=== PATIENT | male | born 1960 | race Caucasian/White ===

== ENCOUNTER 2018-05-21 10:30 | Emergency (ER) | payer BC ==
[2018-05-21 10:35] VITALS: BMI 25.4
[2018-05-21 11:47] LABS: BASO % 0.3 % (0-2.0); EOS % 0.7 % (0-4.5); HEMATOCRIT 42.3 % (35.4-49); LYMPH % 6.4 % (8-40); MCH 29.3 pg (25.7-33.7); MCHC 33.1 g/dl (32.0-35.9); MEAN CELL VOLUME 88.5 fl (80-96); MEAN PLT VOLUME 8.1 fl (7.5-11.1); MONO % 4.5 % (3.8-10.2); NEUT % 88.1 % (42.8-82.8); PLATELET COUNT 216 K/MM3 (134-434); RBC 4.78 M/mm3 (4.00-5.60); RDW 12.7 % (11.9-15.9); WHITE BLOOD COUNT 16.3 K/mm3 (4.0-10.0)
--- NOTE | 2018-05-21 11:52 | PDOC ---
History of Present Illness - History of Present Illness Initial Comments: <Raquel Gold - Last Filed: 05/21/18 13:23> - History of Present Illness Initial Comments: 05/21/18 11:52 The patient is a 57 year old male with no significant PMH who presents to the emergency department with cough, nasal congestion, diffuse body aches, mild shortness of breath and chest pain since last night when he was sleeping. Patient reports his symptoms last night prevented him from falling asleep prompting him to come to the ER for further evaluation. Patient states the chest pain is intermittent, localized in the mid-sterum, nonradiating, that is exacerbated with nonproductive coughing and associated with mild shortness of breath. Patient reports taking some medication from the [place] with minimal relief of his symptoms. Patient denies any recent travel, long hours of immobility, or sick contacts. Patient's father had an [place] in his 70s. The patient denies headache and dizziness. Denies fever, chills, nausea, vomit, diarrhea and constipation. Denies dysuria, frequency, urgency and hematuria. Allergies: NKA Past surgical history: None reported. Social history: Cigarette use. No reported drug or alcohol use. PCP: Dr. Marcial <Darron Fan - Last Filed: 05/21/18 14:33> - General Chief Complaint: Chest Pain Stated Complaint: CHEST PAIN Time Seen by Provider: 05/21/18 10:43 Past History <Raquel Gold - Last Filed: 05/21/18 13:23> - Past Medical History Anemia: No Asthma: No Cancer: No Cardiac Disorders: No CVA: No COPD: No CHF: No Dementia: No Diabetes: No GI Disorders: No Disorders: No HTN: No Hypercholesterolemia: No Liver Disease: No Seizures: No Thyroid Disease: No - Surgical History Abdominal Surgery: No Appendectomy: No Cardiac Surgery: No Cholecystectomy: No Lung Surgery: No Neurologic Surgery: No Orthopedic Surgery: No - Suicide/Smoking/Psychosocial Hx Smoking History: Current some day smoker Information on smoking cessation initiated: No Hx Alcohol Use: No Drug/Substance Use Hx: No Substance Use Type: None Hx Substance Use Treatment: No <Darron Fan - Last Filed: 05/21/18 14:33> - Past Medical History Allergies/Adverse Reactions: Allergies Allergy/AdvReac Type Severity Reaction Status Date / Time No Known Allergies Allergy Verified 05/21/18 10:32 Home Medications: Ambulatory Orders NK [No Known Home Medication] 07/17/14 Review of Systems - Review of Systems Comments:: 05/21/18 11:54 "GENERAL/CONSTITUTIONAL: No fever or chills. (+) Body aches. HEAD, EYES, EARS, NOSE AND THROAT: No change in vision. No ear pain or discharge. No sore throat. (+) Nasal congestion. GASTROINTESTINAL: No nausea, vomiting, diarrhea or constipation. GENITOURINARY: No dysuria, frequency, or change in urination. CARDIOVASCULAR: (+) mild shortness of breath. (+) chest pain. RESPIRATORY: No wheezing, or hemoptysis. (+) Cough. MUSCULOSKELETAL: No joint or muscle swelling or pain. No neck or back pain. SKIN: No rash NEUROLOGIC: No headache, vertigo, loss of consciousness, or change in strength/ sensation. ENDOCRINE: No increased thirst. No abnormal weight change. HEMATOLOGIC/LYMPHATIC: No anemia, easy bleeding, or history of blood clots. ALLERGIC/IMMUNOLOGIC: No hives or skin allergy." <Darron Fan - Last Filed: 05/21/18 14:33> *Physical Exam - Vital Signs Last Vital Signs Temp Pulse Resp BP Pulse Ox 98.8 F 109 H 22 H 107/83 97 05/21/18 10:33 05/21/18 10:33 05/21/18 10:33 05/21/18 10:33 05/21/18 10:33 <Raquel Gold - Last Filed: 05/21/18 13:23> - Vital Signs Last Vital Signs Temp Pulse Resp BP Pulse Ox 98.8 F 109 H 22 H 107/83 97 05/21/18 10:33 05/21/18 10:33 05/21/18 10:33 05/21/18 10:33 05/21/18 10:33 - Physical Exam Comments: 05/21/18 11:54 GENERAL: Awake, alert, and fully oriented, in no acute distress HEAD: No signs of trauma EYES: PERRLA, EOMI, sclera anicteric, conjunctiva clear ENT: Auricles normal inspection, hearing grossly normal, nares patent, oropharynx clear without exudates. Moist mucosa NECK: Normal ROM, supple, no lymphadenopathy, JVD, or masses LUNGS: (+) Coarse breath sounds on the left base but otherwise normal. No wheezes, and no crackles. HEART: Regular rate and rhythm, normal S1 and S2, no murmurs, rubs or gallops ABDOMEN: Soft, nontender, normoactive bowel sounds. No guarding, no rebound. No masses EXTREMITIES: Normal range of motion, no edema. No clubbing or cyanosis. No cords , erythema, or tenderness BACK: No midline spinal tenderness in cervical/thoracic/lumbar region NEUROLOGICAL: Normal speech, cranial nerves intact, negative pronator drift, 5/ 5 strength in all 4 extremities, normal sensation to light touch in all 4 extremities, normal cerebellar exam, normal gait, normal reflexes and tone SKIN: Warm, Dry, normal turgor, no rashes or lesions noted. <Darron Fan - Last Filed: 05/21/18 14:33> Heart Score/ECG Review - History History: Slightly suspicious - Electrocardiogram EKG: Normal - Age Age: 45-65 - Risk Factors Based on the list above the patient has:: 1-2 risk factors - Troponin Troponin: </= normal limit - Score Heart Score - Total: 2 #1 05/21/18 11:50 Twelve-lead EKG was performed and reviewed by me. Normal sinus rhythm, rate 92. Normal axis and intervals. No ST elevations or T-wave inversions. <Darron Fan - Last Filed: 05/21/18 14:33> ED Treatment Course - LABORATORY CBC & Chemistry Diagram: 05/21/18 11:40 05/21/18 11:40 - ADDITIONAL ORDERS Additional order review: Laboratory Results 05/21/18 05/21/18 11:40 11:40 D-Dimer 301 Sodium 137 Potassium 4.0 Chloride 108 H Carbon Dioxide 27 Anion Gap 2 L BUN 7 Creatinine 0.7 Creat Clearance w eGFR > 60 Random Glucose 92 Calcium 8.9 Magnesium 1.8 Total Bilirubin 0.4 AST 15 ALT 21 Alkaline Phosphatase 97 Troponin I < 0.02 B-Natriuretic Peptide 95.0 Total Protein 6.8 Albumin 3.5 05/21/18 11:40 Influenza Types A,B Antigen - Preliminary Nasopharyngeal Swab - Preliminary 05/21/18 11:40 RBC 4.78 MCV 88.5 MCHC 33.1 RDW 12.7 MPV 8.1 Neutrophils % 88.1 H Lymphocytes % 6.4 L Monocytes % 4.5 Eosinophils % 0.7 Basophils % 0.3 <Raquel Gold - Last Filed: 05/21/18 13:23> - LABORATORY CBC & Chemistry Diagram: 05/21/18 11:40 05/21/18 11:40 - ADDITIONAL ORDERS Additional order review: 05/21/18 11:40 RBC 4.78 MCV 88.5 MCHC 33.1 RDW 12.7 MPV 8.1 Neutrophils % 88.1 H Lymphocytes % 6.4 L Monocytes % 4.5 Eosinophils % 0.7 Basophils % 0.3 - RADIOLOGY Radiology Studies Ordered: Category Date Time Status CHEST X-RAY PORTABLE* [RAD] Stat Radiology 05/21/18 11:23 Ordered <Darron Fan - Last Filed: 05/21/18 14:33> Medical Decision Making - Medical Decision Making 05/21/18 12:24 Imaging: Chest XR [portable Reported by: Dr. Gurrola Impression: No evidence of active pulmonary disease. 05/21/18 12:[address] Watson, PCP. 05/21/18 13:23 Case d/w Dr. Watson. <Raquel Gold - Last Filed: 05/21/18 13:23> - Medical Decision Making 05/21/18 11:50 57-year-old male with no significant past medical history presents the emergency department with chest pain since last night associated with diffuse body aches and pains, fevers and cough. Vitals unremarkable. EKG is nonischemic. Exam with some coarse breath sounds in the lungs. Likely viral syndrome with possible pneumonia however, patient has some risk factors for ACS with positive family history of [place] in father and is a daily smoker. Pt low risk for PE but is tachycardic and SOB, will check dimer. -labs -XR -flu swab -reassess 05/21/18 14:19 Leukocytosis of 16, otherwise labs wnl Trop neg x2 CXR clear Likely viral syndrome vs early PNA Will cover for CAP with azithro given hx of PNA Case discussed with pt's PMD Walter Sandoval who agrees with our plan and can see pt for f/u in 1-2 days PT feels well, requests DC I discussed the physical exam findings, ancillary test results and final diagnoses with the patient. I answered all of the patient's questions. The patient was satisfied with the care received and felt comfortable with the discharge plan and treatment plan. The patient will call their primary care physician within 24 hours to arrange follow-up and will return to the Emergency Department with any new, persistent or worsening symptoms. <Darron Fan - Last Filed: 05/21/18 14:33> *DC/Admit/Observation/Transfer <Raquel Gold - Last Filed: 05/21/18 13:23> - Discharge Dispostion Decision to Admit order: No - Attestations Physician Attestion: 05/21/18 14:31 I, Dr. Darron Fan MD, attest that this document has been prepared under my direction and personally reviewed by me in its entirety. I further attest, that it accurately reflects all work, treatment, procedures and medical decision -making performed by me. <Darron Fan - Last Filed: 05/21/18 14:33> Diagnosis at time of Disposition: Viral syndrome, Cough, Chest pain - Discharge Dispostion Disposition: HOME Condition at time of disposition: Stable - Patient Instructions Printed Discharge Instructions: DI for Chest Pain Additional Instructions: As discussed follow up with Dr. Watson within 1-2 days. Take the antibiotics as prescribed. Return to the emergency department if you have any new, worsening, or concerning symptoms.
[2018-05-21 12:11] LABS: ALBUMIN 3.5 g/dl (3.4-5.0); ALK PHOS 97 U/L (45-117); ANION GAP 2 MMOL/L (8-16); BILIRUBIN,TOTAL 0.4 mg/dL (0.2-1); BLOOD UREA NITROGEN 7 mg/dL (7-18); CALCIUM 8.9 mg/dL (8.5-10.1); CHLORIDE 108 mmol/L (98-107); CO2 27 mmol/L (21-32); CREATININE 0.7 mg/dL (0.55-1.3); GLUCOSE,RANDOM 92 mg/dL (74-106); MAGNESIUM 1.8 mg/dL (1.8-2.4); SGOT/AST 15 U/L (15-37); SGPT/ALT 21 U/L (13-61); SODIUM 137 mmol/L (136-145); TOT PROT 6.8 g/dl (6.4-8.2)
[2018-05-21] MEDS ORDERED: AZITHROMYCIN 500 MG TABLET PO ONE (13:31)
[2018-05-21] MEDS ORDERED: AZITHROMYCIN 500 MG TABLET ONE (13:50)
[2018-05-21 15:08] VITALS: BP 115/72; PULSE 81; TEMP 99.5
--- NOTE | 2018-05-22 09:22 | EKG ---
Test Reason : Blood Pressure : / mmHG Vent. Rate : 092 BPM Atrial Rate : 092 BPM P-R Int : 124 ms QRS Dur : 082 ms QT Int : 322 ms P-R-T Axes : 072 013 041 degrees QTc Int : 398 ms NORMAL SINUS RHYTHM NORMAL ECG WHEN COMPARED WITH ECG OF 20-NOV-1999 21:17, NO SIGNIFICANT CHANGE WAS FOUND Confirmed by AUBREY MONCADA MD ([id number]) on 05/22/2018 9:21:38 AM Referred By: Confirmed By:AUBREY MONCADA MD
== END 2018-05-21 15:08 | disposition home or self-care (01) ==
LOC: JER 10:30
DX: B34.9 Viral infection, unspecified (principal); R05 Cough; R07.9 Chest pain, unspecified
CPT/HCPCS: 36415; 71045-TC-FY; 80053; 83735; 83880; 84484; 85025; 85379; 87804; 93005; 93010; 99282-25

== ENCOUNTER 2024-06-02 07:11 | Emergency (ER) | payer OTHER, BC ==
[2024-06-02 07:19] VITALS: BP 111/82; PULSE 73; RESP 18; TEMP 98.2; BMI 26.4
[2024-06-02] MEDS ORDERED: IBUPROFEN 400 MG TABLET (FP) PO ONE (07:23)
[2024-06-02] MEDS: IBUPROFEN 400 MG TABLET (FP) PO ONE (07:26)
== END 2024-06-02 08:43 | disposition home or self-care (01) ==
LOC: FER 07:11
DX: M25.572 Pain in left ankle and joints of left foot (principal)
CPT/HCPCS: 73610-TC-LT-FY; 99283-25